=== PATIENT | female | born 1960 | race Caucasian/White ===

== ENCOUNTER 2018-06-26 00:39 | Emergency (ER) | payer OTHER ==
[~2018-06-26] VITALS: Ht 167.6 cm; Wt 85.0 kg
[~2018-06-26 00:39] MED LIST: CARV-39 PO; HYDR-3237 PO; LEVE500T53 PO; LISI-170 PO; LORA-446 PO; POTA20TA14 PO
[2018-06-26] MEDS ORDERED: SODIUM CHLORIDE 0.9% 1,000ML IVBOLUS ONE (01:00)
[2018-06-26 01:17] LABS: BASOPHILS # (AUTO) 0.04 x10^3/uL (0-0.1); BASOPHILS % (AUTO) 1 % (0-1); EOSINOPHILS # (AUTO) 0.41 x10^3/uL (0-0.4); EOSINOPHILS % (AUTO) 6 % (1-7); LYMPHOCYTES # (AUTO) 2.34 x10^3/uL (1-3.4); LYMPHOCYTES % (AUTO) 34 % (22-44); MD NO; MEAN CORPUSCULAR HEMOGLOBIN 30.8 pg (27.0-34.8); MEAN CORPUSCULAR HGB CONC 34.3 g/dL (32.4-35.8); MEAN CORPUSCULAR VOLUME 89.8 fL (80-100); MEAN PLATELET VOLUME 8.3 fL (7.4-10.4); MONOCYTES % (AUTO) 11 % (2-9); NEUTROPHILS # (AUTO) 3.38 x10^3/uL (1.8-6.8); NEUTROPHILS % (AUTO) 49 % (42-75); PLATELET COUNT 217 x10^3/uL (130-400); RED BLOOD COUNT 3.31 x10^6/uL (3.82-5.3); RED CELL DISTRIBUTION WIDTH 14.9 % (9.6-15.2)
[2018-06-26 01:26] LABS: ALANINE AMINOTRANSFERASE 19 U/L (12-78); ANION GAP 5 mmol/L (5-15); CALCIUM 8.1 mg/dL (8.5-10.1); CHLORIDE 110 mmol/L (98-107); CREATININE 1.67 mg/dL (0.55-1.02)
[2018-06-26 01:28] LABS: ACETAMINOPHEN < 2 mcg/mL (10-30); ALKALINE PHOSPHATASE 56 U/L (45-117); SALICYLATE LEVEL < 1.7 mg/dL (2.8-20.0); TOTAL PROTEIN 5.9 g/dL (6.4-8.2)
[2018-06-26 01:30] LABS: BILIRUBIN,TOTAL < 0.1 mg/dL (0.2-1.0)
[2018-06-26 05:52] VITALS: BP 124/84
== END 2018-06-26 06:29 | disposition home or self-care (01) ==
LOC: ED 05:36
DX: T43.591A Poisoning by other antipsychotics and neuroleptics, accidental (unintentional), initial encounter (principal); F51.01 Primary insomnia; I10 Essential (primary) hypertension; F17.200 Nicotine dependence, unspecified, uncomplicated; Y92.89 Other specified places as the place of occurrence of the external cause
CPT/HCPCS: 36415; 80053; 80307; 80329; 85025; 93005; 99285; J7030; G0480

== ENCOUNTER → 2018-09-11 | Outpatient (CLI) | payer OTHER | END | disposition home or self-care (01) | LOC: CFH 15:39 | PROVIDERS: ATTEND Internal Medicine Nephrology | DX: N18.3 Chronic kidney disease, stage 3 (moderate) (principal) | CPT/HCPCS: 76770 ==